=== PATIENT | male | born 1990 | race Caucasian/White ===

== ENCOUNTER → 2018-11-06 | Outpatient (CLI) | payer BC ==
[2018-10-21 12:01] VITALS: BP 134/80
[~2018-11-06] MED LIST: ADVIL 200MG TA200 MG PO
== END ==
LOC: LAB 15:55
PROVIDERS: Internal Medicine Interventional Cardiology
DX: I42.8 Other cardiomyopathies (principal); I51.7 Cardiomegaly

== ENCOUNTER → 2019-04-07 | Outpatient (CLI) | payer BC, OTHER ==
[2018-10-21 12:01] VITALS: BP 134/80
== END ==
LOC: LAB 15:40
DX: Z00.00 Encounter for general adult medical examination without abnormal findings (principal)

== ENCOUNTER 2020-10-07 15:25 | Emergency (ER) | payer OTHER ==
[2020-10-07 16:35] VITALS: BP 138/77
[2020-10-07] MEDS ORDERED: CITALOPRAM HBR10 MG PO (16:44)
[2020-10-07] MEDS ORDERED: ALPRAZOLAM0.5 MG PO (16:44)
== END 2020-10-07 16:25 | disposition home or self-care (01) ==
LOC: ED 15:25
DX: T65.6X1A Toxic effect of paints and dyes, not elsewhere classified, accidental (unintentional), initial encounter (principal); H57.13 Ocular pain, bilateral; Y92.59 Other trade areas as the place of occurrence of the external cause; Y99.0 Civilian activity done for income or pay

== ENCOUNTER → 2021-09-19 | Outpatient (CLI) | payer BC ==
[~2021-09-19] MED LIST changes: +ALPRAZOLAM0.5 MG PO; +CITALOPRAM HBR10 MG PO
[2021-09-19 16:23] LABS: BASO # 0.05 K/mm3 (0.02-0.10); EOS # 0.36 K/mm3 (0.04-0.40); EOS % 4.2 % (0.0-4.0); HEMATOCRIT 40.5 % (42.0-52.0); HEMOGLOBIN 13.6 g/dL (13.5-18.0); LYMPH# 2.57 K/mm3 (1.50-4.00); MEAN CELL VOLUME 88 fl (78-100); MEAN CORPUSCULAR HEMOGLOBIN 30 pg (27-31); MEAN CORPUSCULAR HGB CONC 34 g/dL (33-37); MEAN PLATELET VOLUME 11.8 fl (7.4-10.4); MONO # 0.92 K/mm3 (0.20-0.80); NEU # 4.57 K/mm3 (1.40-6.50); PLATELET COUNT 199 K/mm3 (130-400); RED BLOOD COUNT 4.61 M/mm3 (4.20-5.60); WHITE BLOOD COUNT 8.5 K/mm3 (4.8-10.8)
[2021-09-19 16:33] LABS: ALBUMIN 4.5 g/dL (3.5-5.0)
[2021-09-19 16:34] LABS: POTASSIUM 4.5 mmol/L (3.5-5.1); SODIUM 141 mmol/L (136-145)
[2021-09-19 16:35] LABS: CALCIUM 9.2 mg/dL (8.3-10.5)
[2021-09-19 16:36] LABS: GLUCOSE 83 mg/dL (75-110); TOTAL PROTEIN 6.9 g/dL (6.4-8.3)
[2021-09-19 16:37] LABS: CARBON DIOXIDE 25 mmol/L (22-29)
[2021-09-19 16:38] LABS: TOTAL BILIRUBIN 0.3 mg/dL (0.2-1.2)
[2021-09-19 16:41] LABS: AST-SGOT 18 U/L (5-34)
[2021-09-19 16:42] LABS: ALT/SGPT 20 U/L (0-55)
[2021-09-19 16:50] LABS: TROPONIN-I < 0.030 ng/mL (<0.030)
[2021-09-19 17:21] LABS: D-DIMER 0.26 mg/L FEU (0.15-0.50)
== END ==
LOC: LAB 16:00
PROVIDERS: Physician Assistant
DX: R07.9 Chest pain, unspecified (principal)

== ENCOUNTER → 2021-09-20 | Outpatient (CLI) | payer BC | LOC: VAS 14:05 → RAD 14:05 | DX: U07.1 COVID-19 (principal) ==

== ENCOUNTER 2021-11-03 09:28 | Emergency (ER) | payer BC ==
[~2021-11-03] VITALS: Ht 175.3 cm; Wt 69.2 kg
[2021-11-03] MEDS ORDERED: LORAZEPAM1 M1 PO (09:39)
[2021-11-03 10:04] LABS: BASO # 0.02 K/mm3 (0.02-0.10); EOS # 0.17 K/mm3 (0.04-0.40); EOS % 2.6 % (0.0-4.0); HEMATOCRIT 41.1 % (42.0-52.0); HEMOGLOBIN 13.8 g/dL (13.5-18.0); LYMPH# 1.63 K/mm3 (1.50-4.00); MEAN CELL VOLUME 88 fl (78-100); MEAN CORPUSCULAR HEMOGLOBIN 30 pg (27-31); MEAN CORPUSCULAR HGB CONC 34 g/dL (33-37); MEAN PLATELET VOLUME 12.1 fl (7.4-10.4); MONO # 0.62 K/mm3 (0.20-0.80); NEU # 4.05 K/mm3 (1.40-6.50); PLATELET COUNT 182 K/mm3 (130-400); RED BLOOD COUNT 4.68 M/mm3 (4.20-5.60); RED CELL DISTRIBUTION WIDTH 12.3 % (11.5-14.5); WHITE BLOOD COUNT 6.5 K/mm3 (4.8-10.8)
[2021-11-03 10:15] LABS: ALBUMIN 4.1 g/dL (3.5-5.0); POTASSIUM 4.2 mmol/L (3.5-5.1)
[2021-11-03 10:16] LABS: CALCIUM 9.2 mg/dL (8.3-10.5)
[2021-11-03 10:18] LABS: TOTAL PROTEIN 6.2 g/dL (6.4-8.3)
[2021-11-03 10:19] LABS: TOTAL BILIRUBIN 0.5 mg/dL (0.2-1.2)
[2021-11-03 11:18] LABS: D-DIMER 0.16 mg/L FEU (0.15-0.50)
[2021-11-03] MEDS ORDERED: MOBIC7.5 MG PO (12:35)
[2021-11-03 12:44] VITALS: BP 115/78
== END 2021-11-03 12:42 | disposition home or self-care (01) ==
LOC: ED 09:28
PROVIDERS: Nurse Practitioner
DX: R07.89 Other chest pain (principal); Z87.891 Personal history of nicotine dependence; Z86.16 Personal history of COVID-19

== ENCOUNTER → 2021-11-10 | Outpatient (CLI) | payer BC ==
[~2021-11-10] MED LIST changes: +LORAZEPAM1 M1 PO; +MOBIC7.5 MG PO
== END ==
LOC: RAD 10:56
DX: M54.2 Cervicalgia (principal)

== ENCOUNTER → 2021-12-18 | Outpatient (CLI) | payer BC | LOC: RAD 14:27 | DX: M50.20 Other cervical disc displacement, unspecified cervical region (principal) | CPT/HCPCS: Q9967 ==

== ENCOUNTER → 2022-06-19 | Outpatient (CLI) | payer OTHER | LOC: RAD 14:42 | DX: S46.012A Strain of muscle(s) and tendon(s) of the rotator cuff of left shoulder, initial encounter (principal); Z98.890 Other specified postprocedural states; X58.XXXA Exposure to other specified factors, initial encounter ==